=== PATIENT | male | born 1955 | race Two or more races ===

== ENCOUNTER 2022-03-03 08:15 | Inpatient (IN) | payer OTHER ==
[2022-03-03] MEDS ORDERED: SYNTHROID88 MCG PO (10:03)
[2022-03-03] MEDS ORDERED: ALTACE5 MG PO (10:04)
[2022-03-03] MEDS ORDERED: ADULT LOW DOSE81 M1 PO (10:04)
[2022-03-03] MEDS ORDERED: LIPITOR40 M1 PO (10:04)
[2022-03-03] MEDS ORDERED: PLAVIX75 MG PO (10:05)
[2022-03-07] MEDS ORDERED: BETAMETHASONE D15 GM (08:09)
[2022-03-09] MEDS ORDERED: BACTRIM DS TAB1 EACH PO (07:59)
[2022-03-09] MEDS ORDERED: XARELTO10 MG PO (07:59)
[2022-03-09] MEDS ORDERED: INTEGRA PLUS C1 EACH PO (07:59)
[2022-03-09] MEDS ORDERED: OXYC1TAB9 PO (07:59)
== END 2022-03-09 20:13 | DRG 470 ==
LOC: SURH 03-07 05:05 → O/R 03-07 05:05 → SURH 03-07 07:00
PROVIDERS: ADMIT Orthopaedic Surgery Sports Medicine; ATTEND Orthopaedic Surgery Sports Medicine
PROC: 0SRC0J9 Replacement of Right Knee Joint with Synthetic Substitute, Cemented, Open Approach (ICD-10-PCS; principal; 2022-03-07 07:00)
DX: M17.11 Unilateral primary osteoarthritis, right knee (principal); E03.9 Hypothyroidism, unspecified; Z96.651 Presence of right artificial knee joint; Z20.822 Contact with and (suspected) exposure to COVID-19; I25.10 Atherosclerotic heart disease of native coronary artery without angina pectoris; I11.9 Hypertensive heart disease without heart failure

== ENCOUNTER 2024-12-19 11:15 | Inpatient (IN) | payer OTHER ==
[~2024-12-19] VITALS: Ht 177.8 cm; Wt 106.6 kg
[~2024-12-19 11:15] MED LIST: ADULT LOW DOSE81 M1 PO; ALTACE5 MG PO; BACTRIM DS TAB1 EACH PO; BETAMETHASONE D15 GM; INTEGRA PLUS C1 EACH PO; LIPITOR40 M1 PO; OXYC1TAB9 PO; PLAVIX75 MG PO; SYNTHROID88 MCG PO; XARELTO10 MG PO
[2024-12-19 14:10] VITALS: BP 138/80
[2024-12-19 15:17] LABS: RH POSITIVE
[2024-12-23] MEDS ORDERED: TRANEXAMIC ACID 100MG/1ML (1000MG) AMPUL IV ONE (13:00)
[2024-12-23] MEDS ORDERED: LIDOCAINE HCL 1%/EPINEPHRINE 20ML VIAL IJ ONE (13:00)
[2024-12-23] MEDS ORDERED: CEFAZOLIN SODIUM 1,000 MG VIAL IV ONE (13:00)
[2024-12-23] MEDS ORDERED: VANCOMYCIN HCL 1,000 MG VIAL IR ONE (13:00)
[2024-12-23] MEDS ORDERED: MORPHINE SULFATE 4 MG/ML CARTRIDGE IV ONE (13:00)
[2024-12-23] MEDS ORDERED: POLYMYXIN B SULFATE 500,000 U VIAL IR ONE (13:00)
[2024-12-23] MEDS ORDERED: BUPIVACAINE HCL/PF 0.25% 30ML VIAL InF ONE (13:00)
[2024-12-23] MEDS ORDERED: KETOROLAC TROMETHAMINE 60 MG VIAL IM ONE (13:00)
[2024-12-23] MEDS ORDERED: MORPHINE SULFATE 4 MG/ML CARTRIDGE IV PRN (15:15)
[2024-12-23] MEDS ORDERED: MORPHINE SULFATE 2 MG/ML CARTRIDGE IV ONE (15:15)
[2024-12-23] MEDS ORDERED: ONDANSETRON HCL 2 MG/ML VIAL IV PRN (15:15)
[2024-12-23] MEDS ORDERED: SODIUM CHLORIDE 0.45 % 1,000 ML IV SCH (15:15)
[2024-12-23] MEDS ORDERED: GENTAMICIN SULFATE 40 MG/ML VIAL IV SCH (17:00)
[2024-12-23] MEDS ORDERED: CEFAZOLIN SODIUM 1,000 MG VIAL IV SCH (18:00)
[2024-12-23 19:38] VITALS: O2SAT 96
[2024-12-23 20:00] VITALS: BP 134/73; O2SAT 97
[2024-12-24] VITALS (8 sets, daily range): BP systolic 111–151; BP diastolic 64–79; O2SAT 87–100
[2024-12-24] MEDS ORDERED: LEVOTHYROXINE SODIUM 88 MCG TABLET PO SCH (06:00)
[2024-12-24 06:52] LABS: BASO % 0.3 % (0.1-1.2); EOS # 0.33 (0.04-0.54); EOS % 2.8 % (0.7-7.0); LYMPH # 0.85 (1.18-3.74); LYMPH % 7.3 % (19.3-53.1); MEAN PLATELET VOLUME 10.00 fl (9.4-12.4); MONO # 1.13 (0.24-0.82); MONO % 9.7 % (4.7-12.5); NEUT # 9.29 (1.56-6.13); NEUT % 79.4 % (34.0-71.1); RED CELL DISTRIBUTION WIDTH 13.5 % (11.6-14.4)
[2024-12-24] MEDS ORDERED: ACETAMINOPHEN WITH CODEINE 1 UDTAB TABLET PO PRN (08:45)
[2024-12-24] MEDS ORDERED: BACITRACIN 28.35 GM OINT.TUBE TOP SCH (09:00)
[2024-12-24] MEDS ORDERED: IRON FUM,PS/FOLIC/BCOMP,C NO.9 1 CAP CAPSULE PO SCH (09:00)
[2024-12-24] MEDS ORDERED: RAMIPRIL 5 MG CAPSULE PO SCH (09:00)
[2024-12-24] MEDS ORDERED: RIVAROXABAN 10 MG TAB PO SCH (09:00)
[2024-12-24] MEDS ORDERED: ATORVASTATIN CALCIUM 40 MG TABLET PO SCH (09:00)
[2024-12-24] MEDS ORDERED: PREDNISONE 5 MG TABLET PO SCH (09:00)
[2024-12-24] MEDS ORDERED: SENNA/DOCUSATE SODIUM 1 TAB TABLET PO SCH (09:00)
[2024-12-24] MEDS ORDERED: CELECOXIB 200 MG CAPSULE PO SCH (09:00)
[2024-12-24 12:25] LABS: COVID-19 AG NEGATIVE (NEGATIVE)
[2024-12-24 13:06] LABS: ALT/SGPT 17.0 U/L (12-78); AST/SGOT 17.0 U/L (15-37); BILIRUBIN TOTAL 1.09 mg/dL (0.3-1.2); BUN CREA RATIO 14.0 (7.0-25.0); CREATININE SERUM 0.97 mg/dL (0.70-1.30); GFR 77.2; GLOBULINA 3.0 G/DL (2.4-3.5); GLUCOSE FASTING 122.0 mg/dL (65-100); OSMOLALITY SERUM 276.0 MOSM/KG (275-295)
[2024-12-25 00:20] VITALS: BP 142/88; O2SAT 96
[2024-12-25 00:26] VITALS: O2SAT 96
[2024-12-25 05:48] VITALS: O2SAT 96
[2024-12-25] MEDS ORDERED: INTEGRA PLUS C1 EACH PO (06:33)
[2024-12-25] MEDS ORDERED: Septra Ds Tablet PO (06:33)
[2024-12-25] MEDS ORDERED: XARELTO10 MG PO (06:33)
[2024-12-25] MEDS ORDERED: ACETAMINOPHEN-1 EAC2 PO (06:34)
[2024-12-25 07:55] LABS: BASO % 0.3 % (0.1-1.2); EOS # 0.31 (0.04-0.54); EOS % 2.5 % (0.7-7.0); LYMPH # 1.36 (1.18-3.74); LYMPH % 10.9 % (19.3-53.1); MEAN PLATELET VOLUME 10.20 fl (9.4-12.4); MONO # 1.85 (0.24-0.82); NEUT # 8.82 (1.56-6.13); NEUT % 70.9 % (34.0-71.1); RED CELL DISTRIBUTION WIDTH 13.6 % (11.6-14.4)
[2024-12-25 08:04] LABS: MONO % 14.8 % (4.7-12.5)
[2024-12-25 08:42] VITALS: BP 126/70; O2SAT 95
[2024-12-25] MEDS ORDERED: SULFAMETHOXAZOLE/TRIMETHOPRIM DS 1 TAB PO SCH (09:00)
[2024-12-25 09:49] VITALS: O2SAT 96
[2024-12-25 13:45] VITALS: O2SAT 95
[2024-12-25 14:21] LABS: ABG PH 7.441 (7.35-7.45); ABG PO2 70.7 mmHg (80-100); BICARBONATE 25.3 mmol/l (23-25)
[2024-12-25 15:01] LABS: o2 21 %
== END 2024-12-25 17:09 | disposition home or self-care (01) | DRG 470 ==
LOC: SURH 12-23 11:15 → SURG 12-23 14:15 → SURH 12-23 14:15 → O/R 12-23 14:15 → SURG 12-23 16:05 → SURH 12-23 16:30 → SURG 12-23 16:53 → SURH 12-23 18:04
PROVIDERS: ADMIT Orthopaedic Surgery Sports Medicine; ATTEND Orthopaedic Surgery Sports Medicine
PROC: 4A12X4Z Monitoring of Cardiac Electrical Activity, External Approach (ICD-10-PCS; 2024-12-23)
PROC: 0SRD0JA Replacement of Left Knee Joint with Synthetic Substitute, Uncemented, Open Approach (ICD-10-PCS; principal; 2024-12-23 16:30)
DX: M17.12 Unilateral primary osteoarthritis, left knee (principal); D68.59 Other primary thrombophilia; E03.9 Hypothyroidism, unspecified; I25.10 Atherosclerotic heart disease of native coronary artery without angina pectoris; Z86.718 Personal history of other venous thrombosis and embolism